=== PATIENT | male | born 1980 | race African-American/Black ===

== ENCOUNTER 2020-12-05 13:47 | Emergency (ER) | payer OTHER ==
[~2020-12-05] VITALS: Ht 185.4 cm; Wt 118.0 kg
[2020-12-05 13:57] VITALS: BP 137/77
[2020-12-05] MEDS ORDERED: DEXAMETHASONE 10 MG/ML VIAL IM ONE (15:00)
[2020-12-05] MEDS ORDERED: FAMOTIDINE 20MG TABLET PO ONE (15:00)
[2020-12-05] MEDS ORDERED: P50 MT (15:49)
[2020-12-05] MEDS ORDERED: FAMO40TA7 MT (15:49)
[2020-12-05] MEDS ORDERED: B50 MT (15:49)
== END 2020-12-05 16:05 | disposition home or self-care (01) ==
LOC: ER 13:47
DX: T78.1XXA Other adverse food reactions, not elsewhere classified, initial encounter (principal); Z91.018 Allergy to other foods; X58.XXXA Exposure to other specified factors, initial encounter
CPT/HCPCS: 96372; 99283; J1100